=== PATIENT | male | born 1970 | race African-American/Black ===

== ENCOUNTER 2017-07-13 15:19 | Inpatient (IN) ==
[2017-07-13] MEDS ORDERED: ALUM/MAG/SIMETH/LIDO VISC 1:1 30 ML BOTTLE PO STA (16:39)
[2017-07-13] MEDS ORDERED: ONDANSETRON 4 MG/2 ML VIAL IV STA (16:39)
[2017-07-13] MEDS ORDERED: MORPHINE 4 MG/1 ML VIAL IV STA (16:39)
[2017-07-13] MEDS ORDERED: NITROGLYCERIN 2% OINT 1 INCH/GM PACK TOP STA (16:39)
[2017-07-13] MEDS ORDERED: METOPROLOL TARTRATE 25 MG TABLET PO STA (16:39)
[2017-07-13] MEDS ORDERED: ASPIRIN 325 MG TABLET PO STA (16:39)
[2017-07-13 16:55] LABS: Basophils % 0.2 % (0.0-0.8); Eosinophils % 0.3 % (0.00-10.9); Hematocrit 41.3 VOL% (42.0-52.0); Immature Granulocytes % 0.4 %; Immature Granulocytes Absolute 0.05 #; Lymphocytes # 1.3 10*3/uL (1.4-4.0); Lymphocytes % 11.2 % (21.2-54.2); Mean Corpuscular HGB Conc 31.5 GM/DL (32-36); Mean Corpuscular Hemoglobin 20 PG (27-34); Mean Corpuscular Volume 62.2 FL (87-102); Monocytes # 1.5 10*3/uL (0.11-0.8); Monocytes % 13.1 % (1.7-12.7); Neutrophils # 8.7 10*3/uL (1.4-7.4); Neutrophils % 74.8 % (38.7-73.9); Platelet Count 122 T/CUMM (130-400); Red Blood Count 6.64 MC/CUMM (3.8-5.5); Red Cell Distribution Width 19.4 % (9.3-17.3); White Blood Count 11.6 T/CUMM (4-12)
[2017-07-13 17:47] LABS: Albumin 4.7 G/DL (3.4-5.0); Bilirubin,Total 1.9 MG/DL (0.2-1.0); Calcium 9.3 MG/DL (8.5-10.1); Osmolality,Calculated 274.7 MOS/KG (273-304); Potassium 3.6 MMOL/L (3.5-5.1); Total Protein 9.2 G/DL (6.4-8.3)
[2017-07-13 18:21] LABS: Apearance,Urine CLEAR (Clear); Bilirubin,Urine Negative (Negative); Blood, Urine Negative (Negative); Glucose,Urine (UA) Negative (Negative); Ketones,Urine 20 mg/dL (Negative); Mucus,Urine Few /LPF (Occasional); Nitrite,Urine Negative (Negative); Protein,Urine 30 MG/DL; RBC,Urine 4 /HPF (0-4); Squamous Epithelial Cell,Urine Occasional /HPF (0-10); Urine Color Amber (Yellow); WBC,Urine 25 /HPF (0-6)
[2017-07-13 18:29] LABS: Barbiturates Screen,Urine Negative (Negative); Benzodiazepines Screen,Urine Negative (Negative); Cannabinoid Screen,Urine Positive (Negative); Opiate Screen,Urine Positive (Negative); Phencyclidine Screen,Urine Negative (Negative)
[2017-07-13] MEDS ORDERED: cefTRIAXone 1,000 MG in SODIUM CHLORIDE 0.9% 100 ML IV STA (19:33)
[2017-07-13] MEDS ORDERED: MORPHINE 4 MG/1 ML VIAL IV PRN (20:12)
[2017-07-13] MEDS ORDERED: ALBUTEROL/IPRATROPIUM 3 ML NEB RESP TX PRN (20:12)
[2017-07-13] MEDS ORDERED: ZALEPLON 5 MG CAPSULE PO PRN (20:12)
[2017-07-13] MEDS ORDERED: NAPROXEN 500 MG TABLET PO PRN (21:33)
[2017-07-13] MEDS: AZITHROMYCIN INJ 500 MG in SODIUM CHLORIDE 0.9% 250 ML IV SCH (22:12)
[2017-07-14 06:58] LABS: Basophils % 0.1 % (0.0-0.8); Eosinophils % 0.2 % (0.00-10.9); Hematocrit 36.3 VOL% (42.0-52.0); Hemoglobin 11.5 GM/DL (14.0-18.0); Immature Granulocytes % 0.5 %; Immature Granulocytes Absolute 0.05 #; Lymphocytes # 1.4 10*3/uL (1.4-4.0); Lymphocytes % 13.3 % (21.2-54.2); Mean Corpuscular HGB Conc 31.7 GM/DL (32-36); Mean Corpuscular Hemoglobin 20 PG (27-34); Mean Corpuscular Volume 62.1 FL (87-102); Monocytes # 1.3 10*3/uL (0.11-0.8); Neutrophils # 7.4 10*3/uL (1.4-7.4); Neutrophils % 72.9 % (38.7-73.9); Platelet Count 131 T/CUMM (130-400); Red Blood Count 5.85 MC/CUMM (3.8-5.5); Red Cell Distribution Width 18.6 % (9.3-17.3); White Blood Count 10.1 T/CUMM (4-12)
[2017-07-14 07:20] LABS: Hypochromasia 2+; Microcytosis 2+; Ovalocytes Slight; Target Cells Few; Tear Drop Cells Slight
[2017-07-14 07:21] LABS: Platelet Estimate Adequate; Polychromasia Slight
[2017-07-14 07:28] LABS: Albumin 3.9 G/DL (3.4-5.0); Bilirubin,Total 1.7 MG/DL (0.2-1.0); Osmolality,Calculated 275.7 MOS/KG (273-304); Potassium 3.7 MMOL/L (3.5-5.1); Total Protein 8.3 G/DL (6.4-8.3)
[2017-07-14] MEDS ORDERED: ALUMINUM/MAGNES/SIMETH MAX STR 30 ML UDCUP PO PRN (08:12)
[2017-07-14 10:36] LABS: Basophils % 0.1 % (0.0-0.8); Eosinophils % 0.3 % (0.00-10.9); Hemoglobin 11.7 GM/DL (14.0-18.0); Immature Granulocytes % 0.3 %; Immature Granulocytes Absolute 0.03 #; Lymphocytes # 1.3 10*3/uL (1.4-4.0); Lymphocytes % 13.9 % (21.2-54.2); Mean Corpuscular HGB Conc 30.8 GM/DL (32-36); Mean Corpuscular Hemoglobin 19 PG (27-34); Mean Corpuscular Volume 62.8 FL (87-102); Monocytes # 1.3 10*3/uL (0.11-0.8); Monocytes % 13.6 % (1.7-12.7); Neutrophils # 6.7 10*3/uL (1.4-7.4); Neutrophils % 71.8 % (38.7-73.9); Platelet Count 134 T/CUMM (130-400); Red Blood Count 6.05 MC/CUMM (3.8-5.5); Red Cell Distribution Width 18.8 % (9.3-17.3); White Blood Count 9.4 T/CUMM (4-12)
[2017-07-14 10:58] LABS: % Iron Saturation 12.8 % (18-50)
[2017-07-14 11:11] LABS: Folate 5.9 NG/ML (5.4-24.0); Vitamin B12 260 PG/ML (211-911)
[2017-07-14 11:51] LABS: Sedimentation Rate-Westergren 38 MM/HR (0-15)
[2017-07-14] MEDS: PANTOPRAZOLE 40 MG TABLET PO SCH (12:41)
[2017-07-14] MEDS ORDERED: LACTULOSE 20 GM/30 ML UDCUP PO PRN (15:40)
[2017-07-14] MEDS ORDERED: BISACODYL 5 MG TABLET PO PRN (15:42)
[2017-07-14] MEDS ORDERED: cefTRIAXone 1,000 MG in SYRINGE 1 EACH IV SCH (21:00)
[2017-07-14] MEDS: AZITHROMYCIN INJ 500 MG in SODIUM CHLORIDE 0.9% 250 ML IV SCH (21:02)
[2017-07-15] MEDS ORDERED: AZITHROMYCIN 250 MG TABLET PO SCH (09:00)
[2017-07-15] MEDS: LEVOFLOXACIN 750 MG TABLET PO SCH (09:02)
[2017-07-15] MEDS: PANTOPRAZOLE 40 MG TABLET PO SCH (09:02)
[2017-07-15] MEDS ORDERED: ONDANSETRON 4 MG/2 ML VIAL IV PRN (10:26)
[2017-07-16 07:29] LABS: Basophils % 0.2 % (0.0-0.8); Eosinophils % 0.3 % (0.00-10.9); Hematocrit 38.7 VOL% (42.0-52.0); Immature Granulocytes % 0.3 %; Immature Granulocytes Absolute 0.03 #; Lymphocytes # 1.8 10*3/uL (1.4-4.0); Mean Corpuscular Hemoglobin 19 PG (27-34); Neutrophils % 68.2 % (38.7-73.9); Platelet Count 179 T/CUMM (130-400); Red Blood Count 6.24 MC/CUMM (3.8-5.5); Red Cell Distribution Width 18.4 % (9.3-17.3); White Blood Count 8.8 T/CUMM (4-12)
[2017-07-16 07:56] LABS: Calcium 9.5 MG/DL (8.5-10.1); Osmolality,Calculated 275.7 MOS/KG (273-304); Potassium 3.7 MMOL/L (3.5-5.1)
[2017-07-16 08:04] LABS: Hypochromasia 2+; Microcytosis 2+; Tear Drop Cells Slight
[2017-07-16 08:05] LABS: Ovalocytes Slight; Platelet Estimate Adequate; Target Cells Slight
[2017-07-16] MEDS: PANTOPRAZOLE 40 MG TABLET PO SCH (10:55)
[2017-07-16] MEDS: LEVOFLOXACIN 750 MG TABLET PO SCH (10:55)
[2017-07-16 11:18] VITALS: BP 137/83
[2017-07-17 20:16] LABS: Mycoplasma pneumoniae PCR Negative; Specimen Source THROAT SWAB
[2017-07-20 09:13] LABS: Hemoglobin A1 (Alkaline) 93.6 % (96.5-98.5); Hemoglobin A2 (Alkaline) 5.8 % (1.5-3.5)
[2017-07-20 09:14] LABS: Hemoglobin F (Alkaline) 0.6 %
== END 2017-07-16 11:50 | disposition home or self-care (01) | DRG 195 ==
LOC: N.ED 15:19 → N.EDINP 20:12 → N.5E 21:14
PROVIDERS: ADMIT Internal Medicine; ATTEND Internal Medicine